=== PATIENT | male | born 1955 ===

== ENCOUNTER 2019-06-08 10:44 | Emergency (ER) | payer BC, SELFPAY ==
[2019-06-08 10:54] VITALS: BMI 33.1
[2019-06-08 11:04] VITALS: BP 161/78; PULSE 61; RESP 16; TEMP 36.5; O2SAT 95
--- NOTE | 2019-06-08 11:19 | PC.NURSE ---
Kriss RN at [facility] contacted. She recommends administering Maalox, watching Pt for additional symptoms for 1-[address] Lugo informed. New orders.
--- NOTE | 2019-06-08 11:33 | ED_ITS ---
HPI - General Adult General Chief complaint: Toxicology Problem Stated complaint: accidentally drank something- vomiting Time Seen by Provider: 06/08/19 10:53 Source: patient Mode of arrival: Ambulatory Limitations: no limitations History of Present Illness HPI narrative: Patient comes emergency department complaining of nausea vomiting. About 2 hours ago, he was exposed to lye residue when he drank out of a cup in the sink. Patient states that unbeknownst to him, his had been making soap from scratch earlier that morning, and has used a live powder. Patient needed to get a drink of water and he used the cup that was already in the sink. Patient states he did not realize his had been using it to measure the lye. He states he felt it was water and drink the whole thing. He did not notice any discomfort or odd taste when he drank the water, but found out from his after the fact that the cup contained some amount of light. he states he does not think it was very much. About an hour later, the patient states he was at the store when he began to feel nauseated. He vomited several times, and states that after the vomiting, he had some mild discomfort in his epigastric and lower chest region, that felt like a burning sensation. Patient denies any sores or pain in his mouth or throat. no pain in the rest of his chest. No shortness of breath. Patient states that he has not been ill with anything recently. He does not have any diarrhea. He states that he had a 4 vessel CABG in December and has been doing well since. He just finished cardiac rehab. Patient states he was not exposed to any other substances. Related Data Previous Rx's Medication Instructions Recorded ondansetron 4 mg PO Q6H PRN #7 tab 06/08/19 Allergies Allergy/AdvReac Type Severity Reaction Status Date / Time No Known Drug Allergies Allergy Verified 06/08/19 10:54 Review of Systems Constitutional Constitutional: Denies chills, Denies fatigue, Denies fever(s), Denies frequent falls, Denies lethargy and Denies weakness Eyes Eyes: Denies change in vision, Denies eye discharge, Denies irritation and Denies loss of vision ENT Ears, Nose, Mouth, and Throat: Denies change in voice, Denies dizziness, Denies neck pain, Denies sore throat and Denies throat swelling Cardiovascular Cardiovascular: Denies chest pain, Denies irregular heart rhythm, Denies lightheadedness, Denies palpitations, Denies dyspnea, Denies dyspnea on exertion and Denies orthopnea Respiratory Respiratory: Denies cough, Denies dyspnea, Denies dyspnea on exertion and Denies wheezing Gastrointestinal Gastrointestinal: Denies abdominal pain, Denies change in bowel habits, Denies diarrhea, Reports nausea and Reports vomiting Genitourinary Genitourinary: Denies hematuria, Denies flank pain, Denies urinary incontinence and Denies urinary urgency Musculoskeletal Musculoskeletal: Denies back pain, Denies muscle weakness, Denies neck pain, Denies numbness and Denies tingling Integumentary/Breasts Skin/Breast: Denies pruritus, Denies erythema, Denies rash and Denies wounds Neurologic Neurologic: Denies behavioral changes, Denies confusion, Denies dizziness, Denies frequent falls, Denies loss of vision, Denies numbness, Denies tingling and Denies weakness Psychiatric Psychiatric: Denies anxiety, Denies behavioral changes, Denies confusion, Denies depression, Denies homicidal ideation and Denies suicidal ideation Endocrine Endocrine: Denies fatigue, Denies flushing and Denies palpitations Hematologic/Lymphatic Hematologic/Lymphatic: Denies easy bruising Allergic/Immunologic Allergic/Immunologic: Denies urticaria, Denies throat swelling and Denies wheezing Patient History Medical History Coronary artery disease (Acute) Surgical History S/P CABG x 4 (Acute) Social History Smoking Status: Unknown if ever smoked Smoking Status: Unknown if ever smoked Exam Initial Vital Signs Initial Vital Signs: Vital Signs Temperature 97.7 F 06/08/19 11:04 Pulse Rate 61 06/08/19 11:04 Respiratory Rate 16 06/08/19 11:04 Blood Pressure 161/78 H 06/08/19 11:04 Pulse Oximetry 95 06/08/19 11:04 Const General: cooperative and well developed Nutritional Appearance: well nourished Orientation: alert, awake, oriented x3 and not confused [facility] Head: normocephalic and atraumatic Ears: external ears normal Nose: external nose normal and No nasal discharge Face and sinus: sinuses nontender, face symmetric, no sinus tenderness and No dry mucous membranes Mouth: oral mucosae normal and moist mucous membranes Teeth and gingiva: dentition normal Throat: tonsils normal and uvula midline Eyes General: appearance normal, both eyes and all related structures Eyelids: eyelids normal Conjunctivae: conjunctivae normal Sclera: sclerae normal Pupils: PERRL EOM: EOM intact bilaterally Neck Neck: normal visual inspection, trachea midline, No lymphadenopathy, No midline deformity and No JVD Lymphatic: No lymphedema Chest Chest: normal inspection of the chest Resp Effort & Inspection: normal respiratory effort, able to speak in complete sentences, no respiratory distress and no use of accessory muscles Auscultation: clear to auscultation bilaterally, no rales, no rhonchi and no wheezes Cardio Rate: regular rate Rhythm: regular rhythm Heart Sounds: no click, no gallops, no murmurs and no rubs Pulses: normal peripheral pulses GI Inspection: non-distended Palpation: soft, no hepatosplenomegaly, No guarding, No pulsatile mass and No tender Auscultation: normal bowel sounds Back/Spine/Pelvis Back: No CVA tenderness Cervical Spine: cervical ROM normal and No pain with cervical ROM Thoracic/Lumbar Spine: thoracic and lumbar spine normal to inspection Skin General: no rashes or lesions noted, No jaundice and No petechiae Neuro General: alert, oriented x3, gait normal and no focal motor deficits Speech: speech normal Extrem General: full ROM, no clubbing, cyanosis or edema, no pedal edema and no calf tenderness Psych Appearance: well kempt Mental Status: mental status grossly normal Attitude: cooperative Thought Content: normal and suicidality Judgment: judgment good Course Course Course Narrative: The patient was very well-appearing, and nearly asymptomatic by the time of his evaluation the emergency department. His case was discussed with Poison Control, who stated that the patient needed observation for 1-2 hours and could be discharged home with still doing well. The patient was given a GI cocktail and Zofran in the emergency department, which he tolerated well. The patient was still doing quite well after observation, and I felt he was stable for discharge home. We have discussed home management of symptoms, as well as the usual indications for return. Orders Ordered: Discontinued Medications Ondansetron HCl (Zofran Odt) 4 mg SL NOW ONE Stop: 06/08/19 11:33 Last Admin: 06/08/19 11:42 Dose: 4 mg Documented by: MONICO Vital Signs Vital signs: Vital Signs - 8 hr 06/08/19 11:04 Temperature 97.7 F Pulse Rate 61 Respiratory Rate 16 Blood Pressure [Right Arm] 161/78 H Pulse Oximetry 95 Medical Decision Making Medical Records Medical records reviewed: Yes I reviewed the patient's medical records. Discharge Plan Departure Patient Disposition: Home Clinical Impression: Accidental ingestion of caustic alkali Qualifiers: Encounter type: initial encounter Qualified Code(s): T54.3X1A - Toxic effect of corrosive alkalis and alkali-like substances, accidental (unintentional), initial encounter Discharge Date/Time: 06/08/19 12:33 Instructions: DI for Accidental Ingestion -- Adult Activity Restrictions/Additional Instructions: There is no evidence of significant peralta from your lye exposure. You may use the nausea medicine prescribed, as well as Maalox at home, needed for any further nausea or indigestion. Prescriptions: New ondansetron 4 mg tablet,disintegrating 4 mg PO Q6H PRN (Reason: nausea and vomiting) Qty: 7 RF: 0
[2019-06-08] MEDS: ONDANSETRON 4 MG ODT SL (11:42)
== END 2019-06-08 12:33 | disposition home or self-care (01) ==
PROVIDERS: Emergency Provider Emergency Medicine
DX: T54.3X1A Toxic effect of corrosive alkalis and alkali-like substances, accidental (unintentional), initial encounter (principal)
CPT/HCPCS: 99282